=== PATIENT | male | born 1995 | race African-American/Black ===

== ENCOUNTER 2024-02-29 20:16 | Emergency (ER) | payer SELFPAY ==
[~2024-02-29] VITALS: Ht 190.5 cm; Wt 80.0 kg
[2024-02-29 20:35] VITALS: BP 150/92; PULSE 83; RESP 16; TEMP 98.2
[2024-02-29] MEDS ORDERED: IBUP-1554 PO (23:52)
== END 2024-03-01 00:17 | disposition home or self-care (01) ==
LOC: EMS 20:16
DX: S16.1XXA Strain of muscle, fascia and tendon at neck level, initial encounter (principal); S05.12XA Contusion of eyeball and orbital tissues, left eye, initial encounter; S80.812A Abrasion, left lower leg, initial encounter; Y08.89XA Assault by other specified means, initial encounter; Y93.89 Activity, other specified; Y92.89 Other specified places as the place of occurrence of the external cause; Y99.8 Other external cause status
CPT/HCPCS: 70486; 99284; Z7502

== ENCOUNTER 2024-03-16 21:42 | Emergency (ER) | payer MEDICAID ==
[~2024-03-16] VITALS: Ht 190.5 cm; Wt 77.3 kg
[~2024-03-16 21:42] MED LIST: IBUP-1554 PO
[2024-03-16 21:57] VITALS: TEMP 97.8
[2024-03-17] MEDS: ONDANSETRON HCL 4 MG/2 ML VIAL IVP ONE (03:47)
[2024-03-17] MEDS: SODIUM CHLORIDE 0.9% 1,000 ML IV ONE (03:47)
[2024-03-17 04:05] LABS: BASOPHILS % (AUTO) 0.5 % (0.0-2.0); EOSINOPHILS % (AUTO) 0.3 % (1.0-6.0); HEMATOCRIT 45.8 % (41-53); HEMOGLOBIN 15.2 g/dL (13.5-17.5); LYMPHOCYTES # (AUTO) 1.5 K/uL (1.0-4.8); MEAN CORPUSCULAR HEMOGLOBIN 30.5 pg (26.0-34.0); MEAN CORPUSCULAR HGB CONC 33.3 G/dL (31.0-37.0); MEAN CORPUSCULAR VOLUME 92 fL (80-100); MONOCYTES # (AUTO) 0.6 K/uL (0.1-1.0); MONOCYTES % (AUTO) 8.1 % (2.0-9.0); NEUTROPHILS % (AUTO) 70.1 % (40.0-70.0); PLATELET COUNT (AUTO) 255 K/uL (150-450); RED CELL DISTRIBUTION WIDTH 15.1 % (11.5-14.5); WHITE BLOOD COUNT (AUTO) 7.2 K/uL (4.5-11.0)
[2024-03-17] MEDS ORDERED: ONDA-104 PO (04:32)
[2024-03-17 04:45] LABS: ANION GAP 14 mmol/L (8-16); CALCIUM, TOTAL 9.6 mg/dL (8.8-10.5); CARBON DIOXIDE 25 mmol/L (22-29); CHLORIDE 97 mmol/L (98-107); CREATININE 1.18 mg/dL (0.60-1.30); GLOMERULAR FILTR. RATE CALC > 60 mL/min (>60); GLUCOSE,RANDOM 101 mg/dL (70-110); SODIUM SERUM 136 mmol/L (136-145); UREA NITROGEN, BLOOD 10 mg/dL (7-18)
[2024-03-17 04:50] LABS: ALANINE AMINOTRANSFERASE 30 U/L (12-78); ALBUMIN 4.2 g/dL (3.4-5.0); ALKALINE PHOSPHATASE 63 U/L (46-116); ASPARTATE AMINOTRANSFERASE 46 U/L (15-37); TOTAL PROTEIN, SERUM 8.3 g/dL (6.4-8.2)
[2024-03-17] MEDS: MAGNESIUM SULFATE 2 GM/WATER 50 ML IV ONE (06:04)
[2024-03-17 07:03] VITALS: BP 143/88; PULSE 62; RESP 16; O2SAT 96
== END 2024-03-17 08:03 | disposition home or self-care (01) ==
LOC: EMS 21:42
DX: E83.42 Hypomagnesemia (principal); R11.2 Nausea with vomiting, unspecified; R42 Dizziness and giddiness; F12.90 Cannabis use, unspecified, uncomplicated; F10.90 Alcohol use, unspecified, uncomplicated; Y90.9 Presence of alcohol in blood, level not specified
CPT/HCPCS: 99285; 80048; 80076; 83735; 85025; 36415; 96365; 96361; 96375; J2405; J7030; J3475